=== PATIENT | male | born 1935 | race Caucasian/White ===

== ENCOUNTER 2018-02-05 14:57 | Inpatient (IN) | payer OTHER ==
--- NOTE | 2018-02-05 15:03 | EDPHY ---
H & P Stated Complaint: dark red blood from rectum x 1 day, on effient Time Seen by Provider: 02/05/18 15:02 HPI/ROS: HPI CHIEF COMPLAINT: Dark blood from rectum HISTORY OF PRESENT ILLNESS: Patient 82-year-old male, he had VFib cardiac arrest in 2016 requiring 1 stent, he had bystander CPR, he presents emergency room with dark blood per rectum this started approximately 2 hr ago. He denies any abdominal pain denies vomiting blood. He is on a blood thinner and he thinks it is Plavix. Denies any chest pain or shortness of breath. States he has had multiple episodes of dark blood per rectum. Past Medical History: Coronary artery disease with 1 stent VFib cardiac arrest Past Surgical History: Cholecystectomy Social History: He denies drugs alcohol tobacco. Family History: Noncontributory ROS REVIEW OF SYSTEMS: A comprehensive 10 point review of systems is otherwise negative aside from elements mentioned in the history of present illness. Exam Constitutional appears well nontoxic, triage nursing summary reviewed, vital signs reviewed, awake/alert. Eyes normal conjunctivae and sclera, EOMI, PERRLA. HENT normal inspection, atraumatic, moist mucus membranes, no epistaxis, neck supple/ no meningismus, no raccoon eyes. Respiratory clear to auscultation bilaterally, normal breath sounds, no respiratory distress, no wheezing. Cardiovascular rate normal, regular rhythm, no murmur, no edema, distal pulses normal. Gastrointestinal rectal exam: On digital rectal exam there is rather large amount of dark clotted blood on glove. Minimal stool. No palpable hemorrhoids or mass on exam soft, non-tender, no rebound, no guarding, normal bowel sounds , no distension, no pulsatile mass. Genitourinary no CVA tenderness. Musculoskeletal no midline vertebral tenderness, full range of motion, no calf swelling, no tenderness of extremities, no meningismus, good pulses, neurovascularly intact. Skin pink, warm, & dry, no rash, skin atraumatic. Neurologic awake, alert and oriented x 3, AAOx3, moves all 4 extremities equally, motor intact, sensory intact, CN II-XII intact, normal cerebellar, normal vision, normal speech. Psychiatric normal mood/affect. Heme/Lymph/Immune no lymphadenopathy. Differential Diagnosis: Includes but is not limited to in a particular order acute GI bleed, upper GI bleed, lower GI bleed, GI bleed on Effient Medical Decision Making: Plan for this patient IV establishment, type and screen, basic blood work, coags, check CBC, gentle IV fluids. Plan will be for admission due to GI bleed. Re-evaluation: 1606: Spoke with Chris they requested that we keep the patient here. Updated the patient is agreeable for admission for GI bleed. He is hemodynamically stable no acute distress. I have ordered him Protonix. I additionally spoke with the hospitalist service Dr. Aguillon who agrees to admit the patient. Will consult GI. I have ordered the patient Protonix. And Protonix drip. 1613: Spoke with Dr. Cueva . 1646: Pharmacy updated me the patient is not on Effient. He is only on Plavix. ([facility]) Source: Patient - Medical/Surgical History Hx Asthma: No Hx Chronic Respiratory Disease: No Hx Diabetes: No Hx Cardiac Disease: Yes Hx Renal Disease: No Hx Cirrhosis: No Hx Alcoholism: No Hx HIV/AIDS: No Hx Splenectomy or Spleen Trauma: No Other PMH: cardiac arrest. (at age 80 [place]iked [place]) - Social History Smoking Status: Never smoked Constitutional: Initial Vital Signs Temperature (C) 36.8 C 02/05/18 14:58 Heart Rate 71 02/05/18 14:58 Respiratory Rate 16 02/05/18 14:58 Blood Pressure 141/80 H 02/05/18 14:58 O2 Sat (%) 95 02/05/18 14:58 O2 Delivery Mode Room Air Allergies/Adverse Reactions: No Known Allergies Allergy (Unverified 04/08/16 23:13) Home Medications: Medication Instructions Recorded Atorvastatin Calcium [Lipitor 40 40 mg PO DAILY #30 tab 04/14/16 mg (*)] Aspirin EC [Aspirin EC 81 mg (*)] 81 mg PO DAILY 02/05/18 Carvedilol [Coreg] 18.75 mg PO BID 02/05/18 Clopidogrel Bisulfate [Plavix (*)] 75 mg PO HS 02/05/18 Cyanocobalamin [Vitamin B12 (*)] 2,500 mcg PO HS 02/05/18 Famotidine [Pepcid 20 MG (*)] 20 mg PO BID 02/05/18 Furosemide [Lasix 40 MG (*)] 40 mg PO DAILY 02/05/18 Medical Decision Making - Data Points Laboratory Results: Laboratory Results 02/05/18 15:15 02/05/18 15:15 Medications Given: Carvedilol (Coreg) 18.75 mg PO BID [facility] Stop: 08/04/18 20:59 Last Admin: 02/06/18 20:21 Dose: 18.75 mg Famotidine (Pepcid) 20 mg PO BID [facility] Stop: 08/04/18 20:59 Last Admin: 02/06/18 20:20 Dose: 20 mg Vitamin B Complex (Vitamin B12) 2,500 mcg PO HS [facility] Stop: 08/05/18 20:59 Last Admin: 02/06/18 20:20 Dose: 2,500 mcg Discontinued Medications Lactated Ringer's (Lr) 1,000 mls @ 0 mls/hr IV ONCE ONE PRN Reason: Per Protocol Stop: 02/06/18 08:02 Last Admin: 02/06/18 08:20 Dose: 1,000 mls Pantoprazole Sodium (Protonix) 40 mg IVP EDNOW ONE Stop: 02/05/18 16:04 Last Admin: 02/05/18 16:14 Dose: 40 mg Pantoprazole Sodium (Protonix) 80 mg IVP EDNOW ONE Stop: 02/05/18 16:16 Last Admin: 02/05/18 16:26 Dose: 80 mg Pantoprazole Sodium (Protonix) 40 mg IVP BID [facility] Stop: 08/04/18 20:59 Last Admin: 02/06/18 10:02 Dose: 40 mg Polyethylene Glycol/Electrolytes (Gavilyte - G) 4,000 ml PO ONCE ONE Stop: 02/05/18 20:38 Last Admin: 02/05/18 20:04 Dose: 4,000 ml Departure - Departure Disposition: [facility] Inpatient Acute Clinical Impression: Acute GI bleeding Condition: Fair
[2018-02-05 15:30] LABS: PLATELET COUNT 193 10^3/uL (150-400)
[2018-02-05 15:39] LABS: INR 0.99 (0.83-1.16); PROTIME(PATIENT) 13.3 SEC (12.0-15.0)
[2018-02-05] MEDS ORDERED: PANTOPRAZOLE SODIUM 40 MG VIAL IVP ONE ×2 (16:03→16:15)
--- NOTE | 2018-02-05 16:07 | ASMTCMCOM ---
CM Note CM Note Notes: Pt presented to the Emergency Department with blood per rectum today (currently on Effient). Pt has a significant cardiac history including vfib arrest with stent placement. Pt to be admitted for further evaluation and treatment. Pt is and lives with his spouse. Discharge needs remain unclear at this time. Anticipate pt will likely discharge home with family support when medically stable. CM will cont to follow. Date Signed: 02/05/2018 04:06 PM Electronically Signed By:Doreen Khalil RN
[2018-02-05] MEDS ORDERED: ACETAMINOPHEN 325 MG TAB PO PRN ×2 (16:38→17:16)
[2018-02-05] MEDS ORDERED: ONDANSETRON DISINTEGRATING 4 MG TAB PO PRN ×2 (16:38→17:16)
[2018-02-05] MEDS ORDERED: PROMETHAZINE HCL 25 MG/ML INJ IVP PRN ×2 (16:38→17:16)
[2018-02-05] MEDS ORDERED: ONDANSETRON 4 MG/2 ML VIAL IVP PRN ×2 (16:38→17:16)
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
--- NOTE | 2018-02-05 18:37 | PDMN ---
Medical Necessity Medical necessity: C/M review: Patient meets INPT criteria under MCG M-182 Gastrointestinal bleeding, lower: Acute gastrointestinal; bleed, bright red blood per rectum, maroon colored stool, Hgb 14.5, 12.8, Hct 41.8, 36.7, lower extremity edema,- likely mild systolic heart failure, requiring planned GI consult, 02/05/2018 bowel prep for planned 02/06/2018 colonoscopy, possible EGD, ongoing NPO, IV Protonix BID, hold dual antiplatelet meds, hold diuretics, serial Hgb / Hct monitoring, comorbid history of out of hospital cardiac arrest with ventricular fibrillation in the setting of STEMI in 2016, CAD with stents 22 to 23 months ago on aspirin and clopidogrel, hyperlipidemia, hypertension, mile systolic heart failure. MD anticipates > 2 MN LOS for ongoing med nec for eval and TX of above. Pt. is Medicare Advantage which follows guidelines CMS puts forth.
[2018-02-05] MEDS ORDERED: PEG 3350/NA SULF,BICARB,CL/KCL (GAVILYTE-G) 4000 ML BTL PO ONE ×2 (20:37)
[2018-02-05] MEDS ORDERED: CARVEDILOL 18.75 MG PO SCH (21:00)
[2018-02-05] MEDS: FAMOTIDINE 20 MG TAB PO SCH (21:02)
[2018-02-05] MEDS: PANTOPRAZOLE SODIUM 40 MG VIAL IVP SCH (21:02)
[2018-02-05] MEDS: CARVEDILOL 6.25 MG TAB PO SCH (21:02)
[2018-02-06 05:04] LABS: INR 1.18 (0.83-1.16); PROTIME(PATIENT) 15.2 SEC (12.0-15.0)
[2018-02-06] MEDS ORDERED: LR 1,000 ML IV ONE (08:01)
--- NOTE | 2018-02-06 08:14 | PDANEPAE ---
ANE History of Present Illness 82 yo male with recent h/o GI bleed now for EGD/colonoscopy. ANE Past Medical History - Cardiovascular History Hx Hypertension: Yes Hx Arrhythmias: No Hx Chest Pain: Yes Hx Coronary Artery / Peripheral Vascular Disease: Yes Cardiovascular History Comment: h/o single stent placement 1 yr ago, now on Plavix - Pulmonary History Hx COPD: No Hx Asthma/Reactive Airway Disease: No Hx Recent Upper Respiratory Infection: No Hx Oxygen in Use at Home: No Hx Sleep Apnea: No Sleep Apnea Screening Result - Last Documented: Positive - Endocrine History Hx Diabetes: No Hypothyroid: No Hyperthyroid: No - Renal History Hx Renal Disorders: No - Liver History Hx Hepatic Disorders: No - Cancer History Hx Cancer: No - GI History GERD: moderate Hx Gastrointestinal Disorders: Yes - Chronic Pain History Chronic Pain: No ANE Review of Systems Review of Systems: - Systems Constitutional: Reports: no symptoms Cardiac: Reports: no symptoms Respiratory: Reports: no symptoms ANE Patient History - Allergies Allergies/Adverse Reactions: No Known Allergies Allergy (Unverified 04/08/16 23:13) - Home Medications Home Medications: Aspirin EC [Aspirin EC 81 mg (*)] 81 mg PO DAILY 02/05/18 [Last Taken 02/05/18] Carvedilol [Coreg] 18.75 mg PO BID 02/05/18 [Last Taken 02/05/18 09:00] Clopidogrel Bisulfate [Plavix (*)] 75 mg PO HS 02/05/18 [Last Taken 02/04/18] Cyanocobalamin [Vitamin B12 (*)] 2,500 mcg PO HS 02/05/18 [Last Taken 02/04/18] Famotidine [Pepcid 20 MG (*)] 20 mg PO BID 02/05/18 [Last Taken 02/05/18 09:00] Furosemide [Lasix 40 MG (*)] 40 mg PO DAILY 02/05/18 [Last Taken 02/05/18] - NPO status NPO Since - Liquids (Date): 02/06/18 NPO Since - Liquids (Time): 06:00 NPO Since - Solids (Date): 02/05/18 NPO Since - Solids (Time): 20:00 - Anes Hx Anes Hx: no prior problems - Smoking Hx Smoking Status: Never smoked Marijuana use: No - Alcohol Use Alcohol Use: Occasionally (2 wine/night) - Family Anes Hx Family Anes Hx: neg - N/A ANE Labs/Vital Signs - Labs Result Diagrams: 02/06/18 04:45 02/06/18 04:45 - Vital Signs Blood Pressure: 164/93 Heart Rate: 68 Respiratory Rate: 16 O2 Sat (%): 96 Height: 172.72 cm Weight: 80.286 kg ANE Physical Exam - Airway Neck exam: FROM Mallampati Score: Class 2 Mouth exam: normal dental/mouth exam - Pulmonary Pulmonary: clear to auscultation - Cardiovascular Cardiovascular: regular rate and rhythym - ASA Status ASA Status: III ANE Anesthesia Plan Anesthesia Plan: GA with mask Total IV Anesthesia: Yes
[2018-02-06] MEDS ORDERED: LIDOCAINE 2% 5 ML SDV ONE (08:19)
[2018-02-06] MEDS ORDERED: PROPOFOL 200 MG/20 ML VIAL ONE ×2 (08:19)
--- NOTE | 2018-02-06 08:53 | GCON ---
[f rep st] CONSULTATION GI CONSULTATION. DATE OF CONSULTATION: 02/06/2018 REFERRING PHYSICIAN: Leonard Daniels CHIEF COMPLAINT: Melena. HISTORY OF PRESENT ILLNESS: The patient is an 82-year-old gentleman who was admitted to the hospital last night with passage of several maroon stools. He has denied any nausea, vomiting, abdominal pain, recent change in bowel habits, or syncopal episodes. He is on chronic Plavix for atherosclerotic cardiovascular disease with an LAD stent placed in 2016. He states that he does get colonoscopies every 5 years (last colonoscopy 5 years ago in [place]) due to family history of colon cancer in his father in his late 40s. He has had no colon polyps to his recollection. He denies any nonsteroidal anti- inflammatory drug use. He has denied any recent chest pains. MEDICATIONS: Prior to admission included atorvastatin 40 mg p.o. daily, aspirin 81 mg daily, Coreg 18.75 mg p.o. twice daily, Plavix 75 mg p.o. daily, Pepcid 20 mg p.o. twice daily, furosemide 40 mg p.o. daily. ALLERGIES: No known drug allergies. PAST MEDICAL HISTORY: 1. Atherosclerotic cardiovascular disease with bhz-mz-ebozudgx cardiac arrest with VFib in March of 2016, status post LAD stent placement. 2. Hyperlipidemia. 3. Hypertension. 4. Mild systolic congestive heart failure. PAST SURGICAL HISTORY: Colonoscopies every 5 years, last colonoscopy normal with exception of diverticulosis 5 years ago and coronary angiography with stent placement in March of 2016. SOCIAL HISTORY: He does not smoke tobacco. He rarely consumes alcohol. He lives in [place] independently. FAMILY HISTORY: Positive for colon cancer in his father at age 48. REVIEW OF SYSTEMS: Other than melena, was negative for comprehensive review of systems. PHYSICAL EXAMINATION: VITAL SIGNS: On my examination today, weight was 80 kilos, BMI 27, temperature 36.6 Celsius, pulse 96, blood pressure 164/93, respiratory rate 16, O2 saturation 96% on room air. GENERAL: Well-developed, neural nourished gentleman, no apparent distress. INTEGUMENT: Clear. HEENT: Head atraumatic, normocephalic. Pupils equal, round, reactive to light. EOMs were intact. Sclerae nonicteric. Nares patent. Mucous membranes moist. Dentition good. NECK: Supple. Trachea midline. LYMPHATICS: No cervical or axillary adenopathy palpated. PULMONARY: Lungs clear to percussion and auscultation. CARDIOVASCULAR: Regular rhythm rate. Normal S1 and S2 without murmur. Peripheral pulses decreased bilaterally with trace pedal edema. GASTROINTESTINAL: Abdomen supple. Positive bowel sounds. No liver or spleen tip palpable. No masses or tenderness noted. No fluid wave noted. EXTREMITIES : Without deformity. NEURO: Patient was alert and oriented x3. There were no focal neurologic deficits. LABS: CBC on admission showed a white count of 10.01, hemoglobin 14.5, hematocrit 41.4, platelets 193,000. With hydration, his hemoglobin has fallen this morning to 10.2 with hematocrit of 29.3. His ProTime is 15.2, INR 1.18, PTT 24.1. Electrolytes were normal. BUN was 28, creatinine 0.9, calcium is 7.5. Urinalysis was negative. Lactic acid 0.9. Glucose 88. IMPRESSION: 1. Melena, rule out upper or lower source of bleeding. Differential diagnosis includes aspirin-induced peptic ulcer disease, esophageal ulceration, occult malignancy of the upper or lower gastrointestinal tract, or diverticulicular bleed (most likely). Less likely, though possible ischemic colitis. 2. Acute post-hemorrhagic anemia. 3. Atherosclerotic coronary vascular disease with status post left anterior descending stent and chronic aspirin and Plavix use. 4. Essential hypertension by history. 5. Hyperlipidemia. 7. Mild CHF by history. RECOMMENDATION: 1. Colyte prep. 2. NPO after prep. 3. Will perform EGD and total colonoscopy this morning with propofol anesthesia due to the patient's advanced age and cardiac history. The patient is aware of the increased risk of this procedure secondary to his underlying health issues. /[id number]/MODL MTDD
--- NOTE | 2018-02-06 09:05 | ASMTCMCOM ---
CM Note CM Note Notes: Chart reviewed. Patient normally functions independently. For colonoscopey this am. CM to follow. Date Signed: 02/06/2018 09:04 AM Electronically Signed By:Monica Alicea RN
--- NOTE | 2018-02-06 09:08 | GIREPORT ---
[facility] Surgical Services - Endoscopy Department Patient Name: Fidel Figueroa Procedure Date: 02/06/2018 8:22 AM Patient Type: Inpatient Attending MD/ ER Physician: Michael Cueva MD Procedure: Upper GI endoscopy Indications: Melena, Acute post hemorrhagic anemia Providers: Michael Cueva MD Medicines: Total IV Anesthesia (TIVA) Complications: No immediate complications. Description of Procedure: After obtaining informed consent, the endoscope was passed under direct vision. Throughout the procedure, the patient's blood pressure, pulse, and oxygen saturations were monitored continuously. The Endoscope was intro duced through the mouth, and advanced to the second part of duodenum. The [facility] er GI endoscopy was accomplished without difficulty. The patient tolerated th e procedure well. Findings: The examined esophagus was normal. The entire examined stomach was normal. Biopsies were taken with a cold forceps for histology. The examined duodenum was normal. Estimated Blood Loss: Estimated blood loss: none. Post Op Diagnosis: - Normal esophagus. - Normal stomach. Biopsied. - Normal examined duodenum. Recommendation: - Perform a colonoscopy today. - Await pathology results. Attending Participation: I personally performed the entire procedure. Michael Cueva MD Michael Cueva MD 02/06/2018 9:07:08 AM This report has been signed electronicallyJoalisa Cueva MD Number of Addenda: 0 Note Initiated On: 02/06/2018 8:22 AM [email or web address]
[2018-02-06] MEDS ORDERED: LR 500 ML IV PRN (09:11)
[2018-02-06] MEDS ORDERED: ALBUTEROL 3 ML DEYVIAL IH PRN (09:11)
--- NOTE | 2018-02-06 09:11 | POSTANESTH ---
Post Anesthetic Evaluation Cardiovascular Status: Normal, Stable Respiratory Status: Normal, Stable Level of Consciousness/Mental Status: Can Participate in Eval, Mildly Sleepy, Arousable Pain Control: Adequate, Prn Tx Ordered Nausea/Vomiting Control: Adequate, Prn Tx Ordered Complications Possibly Related to Anesthesia: None Noted
--- NOTE | 2018-02-06 09:12 | GIREPORT ---
[facility] Surgical Services - Endoscopy Department Patient Name: Fidel Figueroa Procedure Date: 02/06/2018 8:31 AM Patient Type: Inpatient Attending MD/ ER Physician: Michael Cueva MD Procedure: Colonoscopy Indications: Melena, Family history of colon cancer in a first-degree relative, Acut e post hemorrhagic anemia Providers: Michael Cueva MD Medicines: Total IV Anesthesia (TIVA) Complications: No immediate complications. Description of Procedure: After obtaining informed consent, the scope was passed under direct vis ion. Throughout the procedure, the patient's blood pressure, pulse, and oxyg en saturations were monitored continuously. The Colonoscope with irrigatio n channel was introduced through the anus and advanced to the terminal il eum. The colonoscopy was performed without difficulty. The patient tolerated the procedure well. The quality of the bowel preparation was excellent. Findings: The terminal ileum appeared normal. A 4 mm polyp was found in the cecum. The polyp was sessile. The polyp w as removed with a cold biopsy forceps. Resection and retrieval were comple te. The ascending colon, appendiceal orifice and ileocecal valve appeared n ormal. Multiple large-mouthed diverticula were found in the sigmoid colon, descending colon and transverse colon. The rectum appeared normal. The perianal and digital rectal examinations were normal. Estimated Blood Loss: Estimated blood loss: none. Post Op Diagnosis: - The examined portion of the ileum was normal. - One 4 mm polyp in the cecum, removed with a cold biopsy forceps. Rese cted and retrieved. - The ascending colon, appendiceal orifice and ileocecal valve are norm al. - Diverticulosis in the sigmoid colon, in the descending colon and in t he transverse colon. - The rectum is normal. Recommendation: - Return patient to [facility] for ongoing care. - Advance diet as tolerated today. - If patient has significant re-bleed, would recommend mesenteric angio grapy by IR. Attending Participation: I personally performed the entire procedure. Michael Cueva MD Michael Cueva MD 02/06/2018 9:12:12 AM This report has been signed electronicallyMichael Cueva MD Number of Addenda: 0 Note Initiated On: 02/06/2018 8:31 AM Total Procedure Duration Time 0 hours 18 minutes 50 seconds [email or web address]
[2018-02-06] MEDS: FAMOTIDINE 20 MG TAB PO SCH ×2 (09:56→20:20)
[2018-02-06] MEDS: CARVEDILOL 6.25 MG TAB PO SCH ×2 (09:56→20:21)
[2018-02-06] MEDS: PANTOPRAZOLE SODIUM 40 MG VIAL IVP SCH (10:02)
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
[2018-02-06] MEDS ORDERED: CYANO/VITAMIN B12 1000 MCG TAB PO SCH (21:00)
[2018-02-07 05:33] LABS: PLATELET COUNT 119 10^3/uL (150-400)
[2018-02-07 08:34] VITALS: BP 135/74; PULSE 61; RESP 18; TEMP 97.4; O2SAT 96
[2018-02-07] MEDS ORDERED: PANTOPRAZOLE SODIUM 40 MG TAB PO SCH (09:00)
[2018-02-07] MEDS ORDERED: ATORVASTATIN CALCIUM 40 MG TAB PO SCH (09:00)
[2018-02-07] MEDS: CARVEDILOL 6.25 MG TAB PO SCH (10:31)
[2018-02-07] MEDS: FAMOTIDINE 20 MG TAB PO SCH (10:32)
--- NOTE | 2018-02-07 22:41 | GDS ---
[f rep st] DISCHARGE SUMMARY DISCHARGE DIAGNOSES: 1. Acute gastrointestinal bleed, presumed secondary to diverticular disease. 2. Anemia secondary to acute blood loss. 3. Coronary artery disease. 4. History of [id number] cardiac arrest. 5. Hyperlipidemia. 6. Hypertension. HISTORY OF PRESENT ILLNESS: This is an 82-year-old male with a history of coronary artery disease on both aspirin and Plavix, who presents with complaints of maroon stool. For details of patient's initial presentation, please see the history and physical dated 02/05/2018. CONSULTATIVE SERVICES: Gastroenterology. PROCEDURES: 1. 02/06/2018: The patient underwent EGD and colonoscopy. The EGD showed normal esophagus, stomach and duodenum. 2. Colonoscopy shows diverticulosis. Presumed source of his bleed. A 4 mm polyp of the cecum was biopsied. HOSPITAL COURSE BY ISSUE: 1. Acute GI bleed. Patient presented with maroon stools. Was found to drop his hemoglobin from 14 to 9 through the course of his stay. The patient is hemodynamically stable without any active bleeding in the last 24 hours of his hospitalization. He is being discharged home on baby aspirin with his Plavix held until he is seen by his outpatient cardiology team. He is to have his labs checked this week in addition to follow up by his outpatient primary care provider. He should be followed in the outpatient setting by GI with normal scheduling of cancer screening and colonoscopy based on his family history. 2. Anemia secondary to acute blood loss. The patient did drop his hemoglobin from 14 to 9 in the setting of acute bleed with aggressive fluid resuscitation. Again, the patient is not actively bleeding at the time of disposition. He will follow in the outpatient setting with his PCP. 3. Coronary artery disease. Patient did not have any chest pain symptoms. He has been on both aspirin and Plavix since 2016. We are discharging the patient on 81 mg aspirin only with Plavix on hold. He is outside the acute time period for his stenting. He is to follow in the outpatient setting with his senior courtroom clerk for recommendations for ongoing dual antiplatelet therapy. MEDICATIONS AT THE TIME OF TRANSFER: Please reference to the med rec printed on 02/07/2018. FOLLOWUP APPOINTMENTS: 1. His primary care provider in the next 5 days for his 1st hemoglobin, hematocrit check. 2. His outpatient senior courtroom clerk prior to anticipated travel at the end of the month for discussions related to his dual antiplatelet therapy in the setting of an acute GI bleed. TIME SPENT: I spent greater than 30 minutes in the planning and coordination of this discharge. PENDING STUDIES: At the time of this dictation: None. /[id number]/[id number]
== END 2018-02-07 12:57 | disposition home or self-care (01) | DRG 378 ==
LOC: OBSVTOIN 16:06 → F3E 17:14
PROVIDERS: ADMIT Internal Medicine; ATTEND Internal Medicine
PROC: 0DB68ZX Excision of Stomach, Via Natural or Artificial Opening Endoscopic, Diagnostic (ICD-10-PCS; principal; 2018-02-06 08:00)
PROC: 0DBH8ZX Excision of Cecum, Via Natural or Artificial Opening Endoscopic, Diagnostic (ICD-10-PCS; principal; 2018-02-06 08:00)
DX: K57.31 Diverticulosis of large intestine without perforation or abscess with bleeding (principal); D62 Acute posthemorrhagic anemia; I25.10 Atherosclerotic heart disease of native coronary artery without angina pectoris; E78.5 Hyperlipidemia, unspecified; I10 Essential (primary) hypertension; D12.0 Benign neoplasm of cecum; Z86.74 Personal history of sudden cardiac arrest; Z95.5 Presence of coronary angioplasty implant and graft; Z80.0 Family history of malignant neoplasm of digestive organs
CPT/HCPCS: J2704